=== PATIENT | female | born 1985 | race Asian ===

== ENCOUNTER 2017-03-23 04:38 | Inpatient (IN) | payer MEDICAID ==
[~2017-03-23] VITALS: Ht 165.1 cm; Wt 63.5 kg
[2017-03-23] MEDS ORDERED: LACTATED RINGERS 1,000 ML IV SCH (06:18)
[2017-03-23] MEDS ORDERED: NALBUPHINE HYDROCHLORIDE 10 MG/ML VIAL IVP PRN (06:20)
[2017-03-23] MEDS ORDERED: OXYTOCIN 10 UNITS/ML VIAL IM SCH (06:20)
[2017-03-23] MEDS ORDERED: PROMETHAZINE 25 MG/ML VIAL IVP PRN (06:20)
[2017-03-23] MEDS ORDERED: MISOPROSTOL 25 MCG TAB VG PRN (06:20)
[2017-03-23 06:36] LABS: BASOPHILS % (AUTO) 0.1 % (0.0-2.0); EOSINOPHILS # (AUTO) 0.1 K/uL (0-0.4); EOSINOPHILS % (AUTO) 1.7 % (0.0-4.0); HEMATOCRIT 33.6 % (36-48); HEMOGLOBIN 10.8 g/dL (12.0-16.0); LYMPHOCYTES # (AUTO) 1.4 K/uL (2.5-16.5); LYMPHOCYTES % (AUTO) 15.6 % (20.5-51.1); MEAN CORPUSCULAR HEMOGLOBIN 27 pg (27-31); MEAN CORPUSCULAR HGB CONC 32 g/dL (33-37); MEAN CORPUSCULAR VOLUME 85 fL (80-94); MONOCYTES # (AUTO) 0.7 K/uL (0.8-1.0); MONOCYTES % (AUTO) 7.6 % (1.7-9.3); NEUTROPHILS # (AUTO) 6.5 K/uL (1.8-7.7); PLATELET COUNT (AUTO) 309 K/uL (140-450); RED BLOOD CELL COUNT(AUTO) 3.94 MIL/uL (4.20-5.40); RED CELL DISTRIBUTION WIDTH 13.7 % (11.6-13.7); WHITE BLOOD COUNT (AUTO) 8.7 K/uL (4.8-10.8)
[2017-03-23] MEDS ORDERED: OXYTOCIN 20 UNITS/LR PREMIX 1,000 ML IV SCH (07:10)
[2017-03-23 07:30] LABS: APPEARANCE,URINE HAZY (CLEAR); BILIRUBIN,URINE NEGATIVE (NEGATIVE); BLOOD, URINE TRACE-I (NEGATIVE); COLOR,URINE YELLOW (YELLOW); LEUKOCYTE ESTERASE ,URINE 3+ (NEGATIVE); NITRITE, URINE NEGATIVE (NEGATIVE); PROTEIN,URINE NEGATIVE (NEGATIVE); UGLUCOSE NEGATIVE (NEGATIVE); UROBILINOGEN,URINE 0.2 EU/dL (0.2 - 1)
[2017-03-23 07:41] LABS: BACTERIA,URINE 1+ /HPF (None Seen); MUCUS,URINE 1+ /LPF (None Seen); SQUAMOUS EPITHELIAL CELL,UR 4-10 (MOD) /LPF (0-3 (FEW)); WBC,URINE 20-60 /HPF (0-5)
[2017-03-23] MEDS ORDERED: ROPIVACAINE 0.2%/NS PREMIX 250 ML EPI ONE (08:58)
--- NOTE | 2017-03-23 09:00 | NUR ---
PATIENT HAS BEEN SCREENED AND CATEGORIZED LOW NUTRITION RISK. PATIENT WILL BE SEEN WITHIN 7 DAYS OF ADMISSION. 03/29/[address]
[2017-03-23] MEDS ORDERED: OXYTOCIN 20 UNITS/LR PREMIX 1,000 ML IV ONE (09:56)
[2017-03-23] MEDS ORDERED: OXYTOCIN 10 UNITS/ML VIAL ONE (11:46)
[2017-03-23] MEDS ORDERED: BENZOCAINE/MENTHOL 20%-0.5% 60 GM CAN TP PRN (15:55)
[2017-03-23] MEDS ORDERED: OXYTOCIN 10 UNITS/ML VIAL IM PRN (15:55)
[2017-03-23] MEDS ORDERED: oxyCODONE/APAP 5/325 MG 1 TAB TAB PO PRN (15:55)
[2017-03-23] MEDS ORDERED: TEMAZEPAM 15 MG CAP PO PRN (15:55)
[2017-03-23] MEDS ORDERED: WITCH HAZEL 40 PAD PACKAGE TP PRN (15:55)
[2017-03-23] MEDS ORDERED: HYDROcodone/APAP 5/325 MG 1 TAB TAB PO PRN (15:55)
[2017-03-23] MEDS ORDERED: MEASLES, MUMPS, AND RUBELLA 1 VIAL SQVAC PRN (15:55)
[2017-03-23] MEDS ORDERED: IBUPROFEN 800 MG TAB PO PRN (15:55)
[2017-03-23] MEDS ORDERED: METHYLERGONOVINE 0.2 MG/ML AMP IM PRN (15:55)
[2017-03-23] MEDS ORDERED: oxyCODONE/APAP 5/325 MG 1 TAB TAB ONE (16:22)
[2017-03-23] MEDS ORDERED: DOCUSATE SOD/SENNA 50/8.6 MG 1 TAB PO SCH (21:00)
[2017-03-24 06:15] LABS: HEMATOCRIT 29.7 % (36-48); HEMOGLOBIN 9.7 g/dL (12.0-16.0)
== END 2017-03-24 14:35 | disposition home or self-care (01) | DRG 560 ==
LOC: MLD 04:38 → MFCC 08:25
PROVIDERS: ADMIT Obstetrics & Gynecology; ATTEND Obstetrics & Gynecology
PROC: 10E0XZZ Delivery of Products of Conception, External Approach (ICD-10-PCS; principal; 2017-03-23)
PROC: 10907ZC Drainage of Amniotic Fluid, Therapeutic from Products of Conception, Via Natural or Artificial Opening (ICD-10-PCS; 2017-03-23)
PROC: 0W8NXZZ Division of Female Perineum, External Approach (ICD-10-PCS; 2017-03-23)
PROC: 00HU33Z Insertion of Infusion Device into Spinal Canal, Percutaneous Approach (ICD-10-PCS; 2017-03-23)
PROC: 3E0R3CZ (ICD-10-PCS; 2017-03-23)
PROC: 3E0234Z Introduction of Serum, Toxoid and Vaccine into Muscle, Percutaneous Approach (ICD-10-PCS; 2017-03-24)
DX: O69.81X0 Labor and delivery complicated by cord around neck, without compression, not applicable or unspecified (principal); Z23 Encounter for immunization; Z37.0 Single live birth; Z3A.39 39 weeks gestation of pregnancy
CPT/HCPCS: 36415; 51702; 59409; 81001; 85018; 85025; 86592; 86886; 86900; 86901; 87086; 90715; J2590; J2795; J7120

== ENCOUNTER 2019-09-18 06:52 | Day surgery (SDC) | payer OTHER ==
[~2019-09-18] VITALS: Ht 165.1 cm; Wt 56.2 kg
[2019-09-18 08:46] LABS: BASOPHILS % (AUTO) 0.3 % (0.0-2.0); EOSINOPHILS # (AUTO) 0.2 K/uL (0-0.4); EOSINOPHILS % (AUTO) 3.5 % (0.0-4.0); HEMATOCRIT 36.9 % (36-48); HEMOGLOBIN 11.7 g/dL (12.0-16.0); LYMPHOCYTES # (AUTO) 1.8 K/uL (2.5-16.5); MEAN CORPUSCULAR HEMOGLOBIN 28 pg (27-31); MEAN CORPUSCULAR HGB CONC 32 g/dL (33-37); MEAN CORPUSCULAR VOLUME 87.1 fL (80-94); MONOCYTES # (AUTO) 0.4 K/uL (0.8-1.0); MONOCYTES % (AUTO) 7.3 % (1.7-9.3); NEUTROPHILS # (AUTO) 2.6 K/uL (1.8-7.7); NEUTROPHILS % (AUTO) 52.9 % (42.2-75.2); PLATELET COUNT (AUTO) 275 K/uL (140-450); RED BLOOD CELL COUNT(AUTO) 4.24 MIL/uL (4.20-5.40); RED CELL DISTRIBUTION WIDTH 13.4 % (11.6-13.7); WHITE BLOOD COUNT (AUTO) 4.9 K/uL (4.8-10.8)
[2019-09-18 09:02] LABS: ANION GAP 11.4 (8-16); CARBON DIOXIDE 28.4 mmol/L (21-32); CREATININE 0.5 mg/dL (0.6-1.3); POTASSIUM 4.8 mmol/L (3.5-5.1)
[2019-09-18] MEDS ORDERED: LIDOCAINE 2% 100 MG/5 ML SYR IVP ONE (09:04)
[2019-09-18] MEDS ORDERED: PROPOFOL 200 MG/20 ML VIAL IV ONE (09:04)
[2019-09-18] MEDS ORDERED: SEVOFLURANE 250 ML BTL INH ONE (09:04)
[2019-09-18 09:08] LABS: ALBUMIN 4.1 g/dL (3.4-5.0); TOTAL BILIRUBIN 0.4 mg/dL (0.0-1.0)
[2019-09-18] MEDS ORDERED: MIDAZOLAM 2 MG/2 ML VIAL ONE (09:14)
[2019-09-18] MEDS ORDERED: ONDANSETRON 4 MG/2 ML VIAL IVP PRN (09:35)
[2019-09-18] MEDS ORDERED: HYDROmorphone 1 MG/ML AMP IVP PRN (09:35)
== END 2019-09-18 11:35 | disposition home or self-care (01) ==
LOC: MDS 06:52 → MMU 06:54 → MDS 11:35
PROVIDERS: ATTEND Obstetrics & Gynecology
DX: N87.1 Moderate cervical dysplasia (principal); D64.9 Anemia, unspecified; F17.210 Nicotine dependence, cigarettes, uncomplicated
CPT/HCPCS: 36415; 57522; 71045; 80053; 84702; 85025; 88305; 88307; 88313; 88342; J2001; J2250; J2704; J7120; Q0092

== ENCOUNTER 2022-07-27 15:32 | Emergency (ER) | payer OTHER ==
[~2022-07-27] VITALS: Ht 165.1 cm; Wt 54.1 kg
[2022-07-27 15:36] VITALS: BP 122/76
--- NOTE | 2022-07-27 15:40 | NUR ---
PT AMBULATED TO BED 4.
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
[2022-07-27] MEDS: ACETAMINOPHEN EXTRA STRENGTH 500 MG TAB PO ONE (17:24)
[2022-07-27] MEDS: CYCLOBENZAPRINE 10 MG TAB PO ONE (17:24)
[2022-07-27] MEDS ORDERED: NAPR-1847 PO (17:41)
[2022-07-27] MEDS ORDERED: CYCL-711 PO (17:41)
[2022-07-27 17:49] VITALS: BP 120/79
--- NOTE | 2022-07-27 18:09 | NUR ---
Patient discharged with v/s stable. Written and verbal after care instructions given and explained. Patient alert, oriented and verbalized understanding of instructions. Ambulatory with steady gait. All questions addressed prior to discharge. ID band removed. Patient advised to follow up with PMD. Rx of FLEXERIL & NAPROXEN given. Patient educated on indication of medication including possible reaction and side effects. Opportunity to ask questions provided and answered.
== END 2022-07-27 18:09 | disposition home or self-care (01) ==
LOC: MED 15:32
DX: M54.2 Cervicalgia (principal); R51.9 Headache, unspecified; M79.603 Pain in arm, unspecified; Z79.899 Other long term (current) drug therapy; V89.2XXA Person injured in unspecified motor-vehicle accident, traffic, initial encounter; Y93.89 Activity, other specified; Y92.89 Other specified places as the place of occurrence of the external cause; Y99.8 Other external cause status
CPT/HCPCS: 72050; 99283